=== PATIENT | male | born 1990 | race Caucasian/White ===

== ENCOUNTER 2018-01-13 13:22 | Emergency (ER) | payer OTHER ==
[~2018-01-13] VITALS: Ht 167.6 cm; Wt 68.0 kg
[~2018-01-13 13:22] MED LIST: KEFLEX500 MG PO; NOHOMEMEDICATIONS
[2018-01-13] MEDS ORDERED: SUPRAX400 M1 PO (13:43)
[2018-01-13] MEDS ORDERED: AZITHROMYCIN 2250 MG PO (13:43)
[2018-01-13 13:54] VITALS: BP 138/85
== END 2018-01-13 13:55 | disposition home or self-care (01) ==
LOC: M.ERS 13:22
DX: Z20.2 Contact with and (suspected) exposure to infections with a predominantly sexual mode of transmission (principal)

== ENCOUNTER 2018-01-21 18:01 | Emergency (ER) | payer OTHER ==
[~2018-01-21] VITALS: Ht 167.6 cm; Wt 68.0 kg
[~2018-01-21 18:01] MED LIST changes: +AZITHROMYCIN 2250 MG PO; +SUPRAX400 M1 PO
[2018-01-21] MEDS ORDERED: DIPHENHIST50 MG PO (18:11)
[2018-01-21 18:30] VITALS: BP 118/65
== END 2018-01-21 18:30 | disposition home or self-care (01) ==
LOC: M.ERS 18:01
DX: L73.9 Follicular disorder, unspecified (principal); F17.200 Nicotine dependence, unspecified, uncomplicated